=== PATIENT | male | born 1990 | race Two or more races ===

== ENCOUNTER 2020-05-13 19:14 | Emergency (ER) | payer OTHER ==
[~2020-05-13] VITALS: Ht 175.3 cm; Wt 72.6 kg
--- NOTE | 2020-05-13 19:21 | NUR ---
PT AAOX2, ELIDARA C/O BYSTANDER CALLED THEM DUE TO THE PT ACTING BIZARRE AND DRIVING ERRATIC. PT PLACED IN BED 14 ON MONITOR AND PULSE OX. NO ACUTE DISTRESS NOTED. RR EVEN AND UNLABORED. PT CURRENTLY CRYING AND STATING "I AM SCARED." PT REASSURED HE IS OKAY.
[2020-05-13] MEDS ORDERED: OLANZAPINE 10 MG VIAL IM ONE ×2 (19:36→21:07)
--- NOTE | 2020-05-13 19:42 | NUR ---
EMT AT BEDSIDE FOR LABS
[2020-05-13] MEDS: OLANZAPINE 10 MG VIAL IM ONE ×2 (19:49→21:11)
[2020-05-13 20:01] LABS: BASOPHILS % (AUTO) 0.5 % (0.0-2.0); EOSINOPHILS % (AUTO) 0.8 % (0.0-6.0); HEMATOCRIT 39 % (39-51); HEMOGLOBIN 12.5 g/dL (13.5-17.5); LYMPHOCYTES # (AUTO) 1.4 /CMM (0.8-4.8); LYMPHOCYTES % (AUTO) 13.6 % (20.0-44.0); MEAN CORPUSCULAR HGB CONC 32 g/dl (31.0-36.0); MEAN CORPUSCULAR VOLUME 90 fL (80-96); MONOCYTES # (AUTO) 0.8 /CMM (0.1-1.30); MONOCYTES % (AUTO) 7.5 % (2.0-12.0); NEUTROPHILS # (AUTO) 8.1 /CMM (1.8-8.9); NEUTROPHILS % (AUTO) 77.6 % (43.0-81.0); PLATELET COUNT (AUTO) 307 /CMM (150-450); WHITE BLOOD COUNT (AUTO) 10.5 K/uL (4.3-11.0)
--- NOTE | 2020-05-13 20:03 | NUR ---
URINE COLLECTED AND SENT TO LAB
[2020-05-13 20:08] LABS: CARBON DIOXIDE 28 mmol/L (21-32); CHLORIDE 105 mmol/L (98-107); CREATININE 1.1 mg/dL (0.6-1.3); GLUCOSE 103 mg/dL (74-106); POTASSIUM 4.3 mmol/L (3.5-5.1); SODIUM SERUM 143 mmol/L (136-145); UREA NITROGEN, BLOOD 15 mg/dL (7-18)
[2020-05-13 20:08] LABS: BILIRUBIN,URINE SMALL (NEGATIVE); BLOOD, URINE Moderate Ery/uL (NEGATIVE); COLOR,URINE Yellow (YELLOW); KETONES,URINE Trace (NEGATIVE); LEUKOCYTE ESTERASE ,URINE Negative (NEGATIVE); NITRITE, URINE Negative (NEGATIVE); PROTEIN,URINE Trace mg/dl (NEGATIVE); UGLUCOSE Negative (NEGATIVE)
[2020-05-13 20:14] LABS: ALANINE AMINOTRANSFERASE 19 U/L (12-78); ALBUMIN 4.3 g/dL (3.4-5.0); ALCOHOL, BLOOD < 3 mg/dL (0-0); ALKALINE PHOSPHATASE 84 U/L (46-116); ASPARTATE AMINOTRANSFERASE 12 U/L (15-37); BILIRUBIN,DIRECT 0.1 mg/dL (0.0-0.2); BILIRUBIN,TOTAL 0.3 mg/dL (0.2-1.0); SALICYLATE < 2.8 mg/dL (2.8-20.0)
[2020-05-13 20:19] LABS: APPEARANCE,URINE HAZY (CLEAR)
[2020-05-13 20:20] LABS: BACTERIA,URINE Rare /HPF (None Seen); RBC,URINE 21-50 /HPF (0-2); SQUAMOUS EPITHELIAL CELL,UR Few /HPF (None Seen)
[2020-05-13] MEDS ORDERED: diphenhydrAMINE HCL 50 MG/ML VIAL ONE (20:42)
[2020-05-13] MEDS ORDERED: LORAZEPAM INJ 2 MG/ML VIAL ONE (20:42)
[2020-05-13] MEDS: LORAZEPAM INJ 2 MG/ML VIAL IM ONE (20:45)
[2020-05-13] MEDS: diphenhydrAMINE HCL 50 MG/ML VIAL IM ONE (20:45)
--- NOTE | 2020-05-14 04:32 | NUR ---
PT AAOX4. STATED WHERE HE LIVES.
--- NOTE | 2020-05-14 04:48 | NUR ---
Patient discharged to home in stable condition. Written and verbal after care instructions given. Patient verbalizes understanding of instruction. Pt ambulated with steady gait. vss.
[2020-05-14 04:51] VITALS: BP 127/75
== END 2020-05-14 04:52 | disposition home or self-care (01) ==
LOC: ER 19:18
DX: F15.129 Other stimulant abuse with intoxication, unspecified (principal)
CPT/HCPCS: 36415; 80048; 80076; 80305; 80307; 80329; 81001; 85025; 87086; 96372 ×2; 99284; G0480; J1200; J2060; J3490 ×2; 81000-TC